=== PATIENT | male | born 1945 | race Caucasian/White ===

== ENCOUNTER 2024-03-24 09:52 | Emergency (ER) | payer MEDICARE ==
[~2024-03-24] VITALS: Ht 165.1 cm; Wt 92.3 kg
[2024-03-24 10:28] LABS: BASO % 0.5 % (0.0-1.0); EOS # 0.1 10^3/uL (0.0-0.5); EOS % 1.6 % (0.0-3.0); HEMATOCRIT 45.1 % (42.0-52.0); HEMOGLOBIN 14.8 g/dl (13.5-17.5); LYMPH # 1.1 10^3/uL (1.5-5.0); LYMPH % 17.3 % (24.0-44.0); MEAN CORPUSCULAR HEMOGLOBIN 30.8 pg (27.0-33.0); MEAN CORPUSCULAR HGB CONC 32.8 g/dl (32.0-36.5); MONO # 0.6 10^3/uL (0.0-0.8); MONO % 9.8 % (2.0-8.0); NEUTROPHILS # 4.5 10^3/uL (1.5-8.5); NEUTROPHILS % 70.5 % (36.0-66.0); PLATELET COUNT, AUTOMATED 191 10^3/uL (150-450); WHITE BLOOD COUNT 6.4 10^3/uL (4.0-10.0)
[2024-03-24] MEDS ORDERED: AMLO25TA PO (10:31)
[2024-03-24] MEDS ORDERED: ASPI81CH33 PO (10:31)
[2024-03-24] MEDS ORDERED: ROSU5TAB49 PO (10:31)
[2024-03-24] MEDS ORDERED: NEXI20CA PO (10:31)
[2024-03-24] MEDS ORDERED: METO200T15 PO (10:31)
[2024-03-24] MEDS ORDERED: SPIR-10 PO (10:31)
[2024-03-24] MEDS ORDERED: MIRA3350 PO (10:31)
[2024-03-24] MEDS ORDERED: MECL-136 PO (10:42)
[2024-03-24 11:01] LABS: CK-MB VALUE MASS 1.8 NG/ML (<3.6)
[2024-03-24 11:03] LABS: ALBUMIN 4.1 G/DL (3.2-5.2); BILIRUBIN,DIRECT 0.2 MG/DL (<0.4); BILIRUBIN,TOTAL 0.6 MG/DL (0.3-1.2); CALCIUM LEVEL 9.5 MG/DL (8.3-10.6); CREATININE FOR GFR 1.25 MG/DL (0.70-1.30); GLOMERULAR FILTRATION RATE 59.3 (>42); POTASSIUM SERUM 4.3 MMOL/L (3.5-5.1); TOTAL PROTEIN 7.1 G/DL (5.7-8.2)
[2024-03-24 11:04] LABS: FREE T4 1.23 NG/DL (0.89-1.76)
[2024-03-24 11:05] LABS: THYROID STIMULATING HORMONE 1.509 uIU/ML (0.55-4.78)
[2024-03-24 11:09] LABS: MB/CK RELATIVE INDEX 0.92 (< OR =4)
[2024-03-24 12:04] LABS: CK-MB VALUE MASS 1.6 NG/ML (<3.6)
[2024-03-24 12:07] LABS: MB/CK RELATIVE INDEX 0.91 (< OR =4)
[2024-03-24 12:17] LABS: MAGNESIUM LEVEL 2.1 MG/DL (1.8-2.4)
[2024-03-24] MEDS ORDERED: ELIQ5TAB PO (12:21)
[2024-03-24 12:22] VITALS: O2SAT 97
[2024-03-24 12:25] VITALS: BP 101/67; TEMP 97.7
[2024-03-24] MEDS: APIXABAN 5 MG TAB (ELIQUIS) PO ONE (12:31)
== END 2024-03-24 12:39 | disposition home or self-care (01) ==
LOC: M ED 09:52 → EDBD 09:52 → M ED 12:39
DX: I48.0 Paroxysmal atrial fibrillation (principal); I49.9 Cardiac arrhythmia, unspecified; I10 Essential (primary) hypertension; K21.9 Gastro-esophageal reflux disease without esophagitis; F10.10 Alcohol abuse, uncomplicated; Z87.442 Personal history of urinary calculi; Z88.8 Allergy status to other drugs, medicaments and biological substances; Z79.01 Long term (current) use of anticoagulants; Z79.82 Long term (current) use of aspirin; Z79.899 Other long term (current) drug therapy

== ENCOUNTER → 2025-01-18 | Outpatient (CLI) | payer MEDICARE ==
[~2025-01-18] MED LIST: AMLO25TA PO; ASPI81CH33 PO; ELIQ5TAB PO; MECL-136 PO; METO200T15 PO; MIRA3350 PO; NEXI20CA PO; ROSU5TAB49 PO; SPIR-10 PO
== END ==
LOC: M SOG 08:15
PROVIDERS: ATTEND Physician Assistant
DX: M79.641 Pain in right hand (principal)